=== PATIENT | female | born 1955 | race Caucasian/White ===

== ENCOUNTER 2017-09-17 09:14 | Emergency (ER) | payer OTHER ==
[~2017-09-17] VITALS: Ht 152.4 cm; Wt 70.3 kg
== END 2017-09-17 12:42 | disposition home or self-care (01) ==
LOC: ER 09:14
DX: B34.9 Viral infection, unspecified (principal)

== ENCOUNTER → 2018-07-22 | Emergency (ER) | payer OTHER ==
[~2018-07-22] VITALS: Ht 152.4 cm; Wt 70.8 kg
== END | disposition left against medical advice (07) ==
LOC: ER 12:38
DX: Z53.20 Procedure and treatment not carried out because of patient's decision for unspecified reasons (principal)